=== PATIENT | male | born 1960 | race Caucasian/White ===

== ENCOUNTER 2023-12-08 13:39 | Outpatient (POV) | payer MEDICAID, SELFPAY ==
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
[2023-12-08 16:12] VITALS: BP 142/83; PULSE 60; RESP 18; O2SAT 97; BMI 31.9
== END 2023-12-08 23:59 ==
PROVIDERS: PCP Nurse Practitioner Family; Visit Provider Nurse Practitioner Family
DX: M51.16 Intervertebral disc disorders with radiculopathy, lumbar region (principal); M25.551 Pain in right hip; M25.552 Pain in left hip
CPT/HCPCS: 99202; G0463